=== PATIENT | male | born 2000 | race Caucasian/White ===

== ENCOUNTER 2020-04-19 14:13 | Emergency (ER) | payer SELFPAY ==
[2020-04-19] MEDS ORDERED: GI Cocktail Oral Solution 30 ML PO ONE (14:26)
--- NOTE | 2020-04-19 14:26 | EDM.PDOC ---
ED HPI GENERAL MEDICAL PROBLEM - General Stated Complaint: CHEST PAIN Time Seen by Provider: 04/19/20 14:18 Source of Information: Reports: Patient History Limitations: Reports: No Limitations - History of Present Illness INITIAL COMMENTS - FREE TEXT/NARRATIVE: Patient comes emergency department today with complaints of chest pain. This patient has had a bubbling sensation in his epigastric region most of the day and over the past 6 to 7 hours has had pain that shot up his midsternum burning sharp shooting searing pain. He is not short of breath with this. His pain does not radiate anywhere. He has been evaluated for this multiple times in the past. He has had MRIs EGDs etc. for his recurrent chest pain. He was on ranitidine for a while that controlled his symptoms although it has returned. He has no shortness of breath cough or congestion. No fever no chills. No weakness dizziness lightheadedness. No palpitations. No syncope. No abdominal pain no nausea or vomiting. No hematuria dysuria or urinary frequency. The pain kind of comes and goes on its own. Does not get worse with deep breath cough or movement. chest pain Pain Score (Numeric/FACES): 2 - Related Data Home Meds: Home Meds Omeprazole 20 mg PO DAILY #28 tablet. 04/19/20 [Rx] Sucralfate [Carafate] 1 gm PO QIDACANDBED #120 tablet 04/19/20 [Rx] ED ROS GENERAL - Review of Systems Review Of Systems: Comprehensive ROS is negative, except as noted in HPI. ED EXAM, GENERAL - Physical Exam Exam: See Below Exam Limited By: No Limitations General Appearance: Alert, WD/WN, Anxious Eye Exam: Bilateral Eye: EOMI, PERRL Ears: Normal External Exam, Normal TMs Nose: Normal Inspection, Normal Mucosa Throat/Mouth: Normal Inspection, Normal Lips, Normal Teeth, Normal Gums, Normal Oropharynx, Normal Voice Head: Atraumatic, Normocephalic Neck: Normal Inspection, Supple, Non-Tender, Full Range of Motion Respiratory/Chest: No Respiratory Distress, Lungs Clear, Normal Breath Sounds, No Accessory Muscle Use, Chest Non-Tender Cardiovascular: Normal Peripheral Pulses, Regular Rate, Rhythm, No Edema Peripheral Pulses: 2+: Radial (L), Radial (R), Posterior Tibial (L), Posterior Tibial (R), Dorsalis Pedis (L), Dorsalis Pedis (R) GI/Abdominal: Normal Bowel Sounds, Soft, Non-Tender, No Organomegaly, No Distention, No Abnormal Bruit (Male) Exam: Deferred Rectal (Males) Exam: Deferred Back Exam: Normal Inspection, Full Range of Motion Extremities: Normal Inspection, Normal Range of Motion, Non-Tender, No Pedal Edema, Normal Capillary Refill Neurological: Alert, Oriented, Normal Cognition, Normal Gait, No Motor/Sensory Deficits Psychiatric: Normal Affect, Normal Mood Skin Exam: Warm, Dry, Intact, Normal Color, No Rash Lymphatic: No Adenopathy #1 Interpretation EKG Date: 04/19/20 Time: 14:20 Rhythm: NSR Rate (Beats/Min): 99 [place]: Normal P-Wave: Present QRS: Normal ST-T: Normal QT: Normal Comparison: NA - No Prior EKG Course - Vital Signs Last Recorded V/S: Last Vital Signs Temp 97.5 F 04/19/20 14:20 Pulse 113 H 04/19/20 14:20 Resp 18 04/19/20 14:20 BP 138/92 H 04/19/20 14:20 Pulse Ox 98 04/19/20 14:20 - Orders/Labs/Meds Orders: Active Orders 24 hr Category Date Time Status Chest 2V [CR] Urgent Exams 04/19/20 14:51 Taken Labs: Laboratory Tests 04/19/20 04/19/20 Range/Units 14:35 14:35 WBC 4.5 (4.0-10.0) x10^3/uL RBC 5.31 (4.5-6.0) x10^6/uL Hgb 15.2 (14.0-18.0) g/dL Hct 45.4 (40.0-52.0) % MCV 85.5 (78.0-93.0) fL MCH 28.6 (26.0-32.0) pg MCHC 33.5 (32.0-36.0) g/dL RDW Coeff of Frank 13.4 (10.0-15.0) % Plt Count 245 (130-400) x10^3/uL Neut % (Auto) 54.7 (50.0-80.0) % Lymph % (Auto) 34.1 (25.0-50.0) % [place] % (Auto) 7.7 (2.0-11.0) % Eos % (Auto) 2.6 (0.0-4.0) % Baso % (Auto) 0.9 (0.2-1.2) % Sodium 141 (136-145) mmol/L Potassium 4.1 (3.5-5.1) mmol/L Chloride 105 (98-107) mmol/L Carbon Dioxide 26 (21-32) mmol/L Anion Gap 14.1 (10-20) mmol/L BUN 10 (7-18) mg/dL Creatinine 1.3 (0.70-1.30) mg/dL Est Cr Clr Drug Dosing TNP Estimated GFR (MDRD) > 60 Glucose 92 (74-106) mg/dL Calcium 9.1 (8.5-10.1) mg/dL Corrected Calcium 8.78 (8.5-10.1) mg/dL Total Bilirubin 0.8 (0.2-1.0) mg/dL AST 25 (15-37) U/L ALT 40 (16-63) U/L Alkaline Phosphatase 69 (46-116) U/L Troponin I < 0.017 (<=0.056) ng/mL Total Protein 7.6 (6.4-8.2) g/dL Albumin 4.4 (3.4-5.0) g/dL Globulin 3.2 Albumin/Globulin Ratio 1.38 Meds: Medications Discontinued Medications Generic Name Dose Route Start Last Admin Trade Name Freq PRN Reason Stop Dose Admin Al Hydroxide/Mg Hydroxide 30 ml 04/19/20 14:26 04/19/20 14:34 Gi Cocktail PO 04/19/20 14:27 30 ml ONETIME ONE Administration Omeprazole 20 mg 04/19/20 15:37 04/19/20 15:49 Omeprazole PO 04/19/20 15:38 20 mg ONETIME ONE Administration - Radiology Interpretation Free Text/Narrative:: Chest x-ray initially reviewed extemporaneously by myself shows no effusion infiltrate normal cardiac silhouette. - Re-Assessments/Exams Free Text/Narrative Re-Assessment/Exam: 04/19/20 His initial EKG is a normal sinus rhythm with a rate of [address] elevation or depression when reviewed extemporaneously by myself. She was given a GI cocktail with complete resolution of his symptoms. Laboratory evaluation is unremarkable as well as a troponin less than 0.017. He has had chest pain most of the day and has a normal EKG as well as a normal troponin. This is really the sequelae of GERD or acid reflux. We will start him on Carafate as well as omeprazole. He has been on ranitidine in the past but has not continued the therapy completely. 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 If he is not improving over the next couple of weeks he is to recheck with his primary care provider and consider an EGD. He is comfortable with this plan and his questions are answered. Departure - Departure Time of Disposition: 15:37 Disposition: Home, Self-Care 01 Clinical Impression: Non-cardiac chest pain GERD (gastroesophageal reflux disease) Qualifiers: Esophagitis presence: esophagitis presence not specified Qualified Code(s): K21.9 - Gastro-esophageal reflux disease without esophagitis Prescriptions: Sucralfate [Carafate] 1 gm PO QIDACANDBED #120 tablet Omeprazole 20 mg PO DAILY #28 tablet.dr Instructions: Nonspecific Chest Pain, Adult, [id number], Gastroesophageal Reflux Disease, Adult, [id number] Referrals: PCP,None [Primary Care Provider] - Forms: ED Department Discharge Additional Instructions: Carafate 1 tablets 4 times a day 1/2hr prior to meals and bedtime. Rx to [facility]. Omeprazole, 1 capsule daily for the next 28 days. Rx to [facility]. Stay away from fatty spicy foods. If symptoms persists after the above therapy see PCP for consideration of EGD. Return to the ED if new or worsening symptoms. Follow up with PCP in the next 4-6 days if not improving sooner if worse. Sepsis Event Note (ED) - Focused Exam Vital Signs: Vital Signs Temp Pulse Resp BP Pulse Ox 04/19/20 14:20 97.5 F 113 H 18 138/92 H 98 - My Orders Last 24 Hours: My Active Orders 04/19/20 14:51 Chest 2V [CR] Urgent - Assessment/Plan Last 24 Hours: My Active Orders 04/19/20 14:51 Chest 2V [CR] Urgent
[2020-04-19 15:05] LABS: ANION GAP 14.1 mmol/L (10-20); CHLORIDE,CL 105 mmol/L (98-107); SODIUM,NA 141 mmol/L (136-145)
[2020-04-19] MEDS ORDERED: Omeprazole 20 MG Cap.CR PO ONE (15:37)
--- NOTE | 2020-04-20 09:21 | CR ---
[id number] RAD/RAD Chest PA And Lateral EXAM: RAD Chest PA And Lateral CLINICAL DATA: CHEST PAIN COMPARISON: NO PREVIOUS SIMILAR EXAM IS AVAILABLE. FINDINGS: The lungs are clear. The cardiomediastinal contour is normal. The regional bones and soft tissues are unremarkable. IMPRESSION: NO ACUTE PROCESS. Kaleb Chase MD 04/20/20 2139 Thank you for allowing us to participate in the care of your patient.
== END 2020-04-19 15:52 | disposition home or self-care (01) ==
LOC: VM.ED 14:13
DX: K21.9 Gastro-esophageal reflux disease without esophagitis (principal)
CPT/HCPCS: 36415; 71046; 80053; 84484; 85025; 93005; 93010; 99284; 99285-25; A9270-GY

== ENCOUNTER 2021-05-14 07:42 | Emergency (ER) | payer SELFPAY ==
--- NOTE | 2021-05-14 14:04 | EDM.PDOC ---
ED HPI GENERAL MEDICAL PROBLEM - General Chief Complaint: ENT Problem Stated Complaint: SORE THROAT Time Seen by Provider: 05/14/21 07:46 Source of Information: Reports: Patient History Limitations: Reports: No Limitations - History of Present Illness INITIAL COMMENTS - FREE TEXT/NARRATIVE: Pt. presents to ER with complaints of sore throat for the past 7 days. He states that it got worse within the past 24 hours. He states that he is congested and has a sore throat. Denies any fever or chills. No nausea, vomiting, or diarrhea. No chest pain or shortness of breath. No problems swallowing or managing her secretions. Pt. denies any headache. No abdominal pain or diarrhea. Onset: Today Onset Date: 05/15/21 Throat Pain Score (Numeric/FACES): 8 - Related Data Allergies Allergy/AdvReac Type Severity Reaction Status Date / Time No Known Allergies Allergy Verified 05/14/21 07:55 Home Meds: Home Meds . [No Known Home Meds] 05/14/21 [History] Past Medical History Gastrointestinal History: Reports: GERD Social & Family History - Family History Family Medical History: Unobtainable - Tobacco Use Tobacco Use Status *Q: Unknown Ever Used Tobacco - Caffeine Use Caffeine Use: Reports: None - Recreational Drug Use Recreational Drug Use: Yes Recreational Drug Type: Reports: Marijuana/Hashish Recreational Drug Use Frequency: Socially ED ROS GENERAL - Review of Systems Review Of Systems: See Below Constitutional: Reports: No Symptoms HEENT: Reports: Sinus Problem, Throat Pain Respiratory: Reports: Cough Cardiovascular: Reports: No Symptoms Endocrine: Reports: No Symptoms GI/Abdominal: Reports: No Symptoms : Reports: No Symptoms Musculoskeletal: Reports: No Symptoms Skin: Reports: No Symptoms Neurological: Reports: No Symptoms Psychiatric: Reports: No Symptoms ED EXAM, GENERAL - Physical Exam Exam: See Below Exam Limited By: No Limitations General Appearance: Alert, WD/WN, No Apparent Distress Nose: Normal Inspection, Normal Mucosa, No Blood Throat/Mouth: Normal Lips, Normal Teeth, Normal Gums, Normal Voice, No Airway Compromise, Inflammation Head: Atraumatic, Normocephalic Neck: Normal Inspection, Supple, Non-Tender, Full Range of Motion Respiratory/Chest: No Respiratory Distress, No Accessory Muscle Use, Rhonchi Cardiovascular: Normal Peripheral Pulses, Regular Rate, Rhythm, No Edema Peripheral Pulses: 4+: Radial (L) GI/Abdominal: Soft, Non-Tender, No Distention, No Mass (Male) Exam: Deferred Rectal (Males) Exam: Deferred Back Exam: Normal Inspection, Full Range of Motion Extremities: Normal Inspection, Normal Range of Motion, Non-Tender, No Pedal Edema, Normal Capillary Refill Neurological: Alert, Oriented, CN II-XII Intact, Normal Cognition, Normal Reflexes, No Motor/Sensory Deficits Psychiatric: Normal Affect, Normal Mood Skin Exam: Warm, Dry, Intact, Normal Color Course - Vital Signs Last Recorded V/S: Last Vital Signs Temp 36.1 C 05/14/21 07:46 Pulse 76 05/14/21 07:46 Resp 16 05/14/21 07:46 BP 124/79 05/14/21 07:46 Pulse Ox 99 05/14/21 07:46 Departure - Departure Time of Disposition: 08:30 Disposition: Home, Self-Care 01 Clinical Impression: Pharyngitis, Bronchitis - Discharge Information Instructions: Amoxicillin; Clavulanic Acid Tablets, Acute Bronchitis, Adult, [id number], Pharyngitis, [id number], Probiotics Referrals: PCP,None [Primary Care Provider] - Forms: ED Department Discharge Additional Instructions: Augmentin 875mg 1 tab twice daily for 10 days Tylenol and ibuprofen as needed for discomfort Drink plenty of fluids Please excuse from work today, or until you have been without a fever for 24 hours. - Problem List Review Problem List Initiated/Reviewed/Updated: Yes - Assessment/Plan Plan: Augmentin 875mg 1 tab twice daily for 10 days Tylenol and ibuprofen as needed for discomfort Drink plenty of fluids Please excuse from work today, or until you have been without a fever for 24 hours.
== END 2021-05-14 08:17 | disposition home or self-care (01) ==
LOC: VM.ED 07:42
DX: J02.9 Acute pharyngitis, unspecified (principal); J40 Bronchitis, not specified as acute or chronic; K21.9 Gastro-esophageal reflux disease without esophagitis
CPT/HCPCS: 99283

== ENCOUNTER 2022-10-26 11:35 | Emergency (ER) | payer MEDICAID ==
[2022-10-26] MEDS ORDERED: Orphenadrine 60 MG/2 ML Inj IM ONE (12:04)
[2022-10-26] MEDS ORDERED: Ketorolac 30 MG/ML SDV IM ONE (12:04)
== END 2022-10-26 12:25 | disposition home or self-care (01) ==
LOC: VM.ED 11:35
DX: G44.209 Tension-type headache, unspecified, not intractable (principal)
CPT/HCPCS: 96372; 99283; J1885; J2360

== ENCOUNTER 2023-02-11 12:28 | Emergency (ER) | payer OTHER, MEDICAID | END 2023-02-11 14:38 | disposition home or self-care (01) | LOC: MERGE 12:28 → VM.ED 12:28 | DX: S39.012A Strain of muscle, fascia and tendon of lower back, initial encounter (principal); S76.011A Strain of muscle, fascia and tendon of right hip, initial encounter; W18.30XA Fall on same level, unspecified, initial encounter; Y99.0 Civilian activity done for income or pay | CPT/HCPCS: 72100; 99283; 99284 ==